=== PATIENT | male | born 1950 | race Caucasian/White ===

== ENCOUNTER 2017-12-20 12:57 | Emergency (ER) | payer OTHER ==
[2014-03-29 12:30] VITALS: Wt 117.9 kg
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
[2017-12-20] MEDS ORDERED: ESCI5TAB10 PO (13:03)
[2017-12-20] MEDS ORDERED: DIPHTH/TETANUS/ACEL. PERTUSSIS IM ONLY ONE (13:05)
[2017-12-20] MEDS ORDERED: TETRACAIN/EPI/LIDO GEL 3ML SYR TP ONE (13:25)
[2017-12-20 14:00] VITALS: BP 139/87
[2017-12-20] MEDS ORDERED: CEPH-13 PO (14:15)
== END 2017-12-20 14:31 | disposition home or self-care (01) ==
LOC: ER 13:00
DX: S01.81XA Laceration without foreign body of other part of head, initial encounter (principal); V86.59XA Driver of other special all-terrain or other off-road motor vehicle injured in nontraffic accident, initial encounter
CPT/HCPCS: 90471; 90715; 99283